=== PATIENT | female | born 1945 | race Caucasian/White ===

== ENCOUNTER → 2016-12-27 | Day surgery (SDC) | payer MEDICARE ==
[~2016-12-27] MED LIST: ACYC1CAP16 PO; ASPI1TAB69 PO; BENA25TA3 PO; CALCTAB33 PO; DILT120T PO; DULO1CAP3 PO; FOLI1TAB4 PO; FOSA70TA PO; HYDR25TA5 PO; IBUP200C PO; METH3INJ INJ; METO25TA3 PO; MORPHINE SULFATE 10 MG IT ONE; MULT1TAB84 PO; OMEP40CA2 PO; OXYC1TAB63 PO; PRED5TAB PO; PROPOFOL 200 MG/20 ML AMP IV ONE; PUMP IT ONE; SODIUM CHLOR 0.9% 250 ML BAG ONE; SODIUM CHLORIDE 0.9% INJ 0 ML ONE; SODIUM CHLORIDE 0.9% INJ 50 ML ONE; TOCI20IN IM; ceFAZolin INJ 1,000 MG VIAL ONE
--- NOTE | 2016-12-27 10:39 | M6 ---
cc: DEUCE LUA M.D. DATE 12/27/2016 DATE OF 1945 PROCEDURE Implantation of intrathecal catheter for continuous infusion of intrathecal morphine. PROCEDURE NOTE History and physical was completed and signed. Consent was signed. Procedure site was marked. Medications were listed and reconciled. Pain score was recorded. Allergies were noted. Time out was taken. Fluoroscopy time was recorded where applicable. Sedation was administered or directed by Dr. Lua. The patient was given oxygen. The patient was monitored by a registered nurse. Total procedure time was greater than 15 minutes. IV was started, blood pressure cuff, pulse oximeter and EKG were applied. The patient was placed in the prone position on a Sebastian table, sedated with small amounts of propofol titrated to effect. Vital signs were monitored and remained stable throughout the procedure. The lumbar area was prepped with alcohol and 10% Betadine solution, draped with sterile drapes. Fluoroscopy was used to visualize the L4-5 interlaminar space. The skin was infiltrated with 1% Xylocaine using a 27 gauge needle. Then a modified 18 gauge Tuohy needle was advanced under fluoroscopic guidance into the intrathecal space easily on the first attempt. There was clear flow of cerebrospinal fluid. A Portex catheter was threaded through the needle and up in a cephalad direction three vertebral bodies. Then a small incision was made around the needle and a tunneling device was passed to exit on the patient's left flank. Then the needle was removed, the stylet was removed from the catheter and the catheter was passed through the tunneling device to exit on the patient's left flank. There was clear flow of cerebrospinal fluid through the catheter. Then the small incision in the lumbar area and the exit site of the catheter were covered with a small amount of antibiotic gel and sterilely adhesive dressings. Then a pump containing morphine 0.01/mL was attached to the catheter at a continuous rate of 1 mL/hour. The patient was taken to the recovery room with stable vital signs neurologically intact. W. MD DAINA Quintanilla/ANA LILIA /8:16 AM /10:37 AM
== END | disposition home or self-care (01) ==
LOC: PHSDC 06:43
PROVIDERS: ATTEND Pain Medicine Interventional Pain Medicine
DX: M54.5 Low back pain (principal)
CPT/HCPCS: 62350; 99152; 99153; C2626; J0690; J2274; J7050